=== PATIENT | male | born 1965 | race Caucasian/White ===

== ENCOUNTER 2018-08-28 18:19 | Emergency (ER) | payer MEDICARE ==
[~2018-08-28] VITALS: Ht 167.6 cm; Wt 92.3 kg
[2018-08-28] MEDS ORDERED: KETOROLAC TROMETHAMINE 30 MG/ML VIAL IM ONE (22:00)
[2018-08-28 22:46] VITALS: BP 136/84
[2018-08-29] MEDS ORDERED: MET750 PO (18:25)
[2018-08-29] MEDS ORDERED: IBUP-1506 PO (18:25)
[2018-08-29] MEDS ORDERED: SODIUM CHLORIDE 0.9% 100 ML ONE (20:12)
[2018-08-29] MEDS ORDERED: IOVERSOL 350 MG/ML 100 ML VIAL ONE (20:12)
== END 2018-08-28 22:48 | disposition home or self-care (01) ==
LOC: EMS 18:19
DX: S13.4XXA Sprain of ligaments of cervical spine, initial encounter (principal); X50.9XXA Other and unspecified overexertion or strenuous movements or postures, initial encounter; Y93.89 Activity, other specified; Y92.89 Other specified places as the place of occurrence of the external cause; Y99.8 Other external cause status
CPT/HCPCS: 96372; 99283; J1885; J7050

== ENCOUNTER 2018-08-29 18:16 | Emergency (ER) | payer MEDICARE ==
[~2018-08-29] VITALS: Ht 170.2 cm; Wt 81.8 kg
[2018-08-29] MEDS ORDERED: IBUP-1506 PO (18:25)
[2018-08-29] MEDS ORDERED: MET750 PO (18:25)
[2018-08-29 19:03] LABS: BASOPHILS % (AUTO) 0.8 % (0.0-2.0); EOSINOPHILS % (AUTO) 0.1 % (1.0-6.0); HEMATOCRIT 41.1 % (41-53); HEMOGLOBIN 14.2 g/dL (13.5-17.5); LYMPHOCYTES # (AUTO) 3.1 K/uL (1.0-4.8); LYMPHOCYTES % (AUTO) 21.6 % (22.0-44.0); MEAN CORPUSCULAR HEMOGLOBIN 31.9 pg (26.0-34.0); MEAN CORPUSCULAR HGB CONC 34.4 G/dL (31.0-37.0); MEAN CORPUSCULAR VOLUME 93 fL (80-100); MONOCYTES # (AUTO) 1.4 K/uL (0.1-1.0); MONOCYTES % (AUTO) 9.3 % (2.0-9.0); NEUTROPHILS # (AUTO) 9.9 K/uL (1.8-7.7); NEUTROPHILS % (AUTO) 68.2 % (40.0-70.0); PLATELET COUNT (AUTO) 386 K/uL (150-450); RED BLOOD CELL COUNT(AUTO) 4.44 MIL/uL (4.50-5.90); RED CELL DISTRIBUTION WIDTH 12.9 % (11.5-14.5)
[2018-08-29 19:18] LABS: ANION GAP 3 mmol/L (8-16); CALCIUM, TOTAL 9.3 mg/dL (8.8-10.5); CARBON DIOXIDE 32 mmol/L (22-29); CHLORIDE 101 mmol/L (98-107); CREATININE 1.14 mg/dL (0.60-1.30); GLOMERULAR FILTR. RATE CALC > 60 mL/min (>60); GLUCOSE,RANDOM 127 mg/dL (70-110); POTASSIUM 4.4 mmol/L (3.5-5.1); SODIUM SERUM 136 mmol/L (136-145); UREA NITROGEN, BLOOD 17 mg/dL (7-18)
[2018-08-29 19:24] LABS: ALANINE AMINOTRANSFERASE 31 U/L (12-78); ALBUMIN 3.2 g/dL (3.4-5.0); ALKALINE PHOSPHATASE 106 U/L (46-116); ASPARTATE AMINOTRANSFERASE 24 U/L (15-37); BILIRUBIN,TOTAL 0.3 mg/dL (0.1-1.0); TOTAL PROTEIN, SERUM 7.9 g/dL (6.4-8.2)
[2018-08-29 22:00] VITALS: BP 163/100
[2018-08-29] MEDS ORDERED: LORazepam 2 MG/ML VIAL IVP ONE ×2 (22:15→23:30)
[2018-08-29] MEDS ORDERED: GADOBUTROL 1 MMOL/ML 10 ML VIAL IVP ONE (22:50)
[2018-08-29] MEDS ORDERED: LORazepam 1 MG TABLET PO ONE (23:00)
== END 2018-08-29 23:47 | disposition left against medical advice (07) ==
LOC: EMS 18:17
DX: M54.2 Cervicalgia (principal); R07.89 Other chest pain; I10 Essential (primary) hypertension; Z79.899 Other long term (current) drug therapy; Z98.890 Other specified postprocedural states
CPT/HCPCS: 36415; 71045; 72126; 80053; 84484; 85025; 93005; 96374; 99284; J2060; A9585